=== PATIENT | female | born 1985 | race Two or more races ===

== ENCOUNTER 2022-06-13 15:56 | Emergency (ER) | payer BC, OTHER ==
[~2022-06-13] VITALS: Ht 152.4 cm; Wt 96.8 kg
[2022-06-13 17:15] VITALS: BP 102/55
[2022-06-13] MEDS ORDERED: IBUP800T27 PO (17:41)
[2022-06-13] MEDS ORDERED: CEPH-510 PO (17:41)
[2022-06-13] MEDS ORDERED: IBUPROFEN 800 MG TAB PO ONE (18:00)
== END 2022-06-13 18:14 | disposition home or self-care (01) ==
LOC: ER 15:59
DX: B35.3 Tinea pedis (principal); J45.909 Unspecified asthma, uncomplicated; Z88.0 Allergy status to penicillin